=== PATIENT | female | born 2000 | race Hispanic/Latino ===

== ENCOUNTER 2021-04-26 16:17 | Inpatient (IN) | payer OTHER ==
[2021-04-26 16:39] VITALS: BMI 27.2
[2021-04-26] MEDS ORDERED: hydrALAZINE 20 MG/ML VIAL SLOW IVP PRN ×3 (16:57→21:00)
[2021-04-26] MEDS ORDERED: Lactated Ringer's 1,000 ML IV SCH ×2 (17:00→17:30)
[2021-04-26] MEDS ORDERED: Lidocaine 1% (PF) 30 ML VIAL SC PRN (17:23)
[2021-04-26] MEDS ORDERED: Ondansetron PF 4 MG/2 ML Vial IVP PRN ×2 (17:23→21:00)
[2021-04-26] MEDS ORDERED: Promethazine HCl 25 MG/ML VIAL IM PRN ×2 (17:23→21:00)
[2021-04-26] MEDS ORDERED: Diphenoxylate HCl/Atropine Tablet PO PRN (17:23)
[2021-04-26] MEDS ORDERED: Misoprostol 200 MCG TAB PR PRN (17:23)
[2021-04-26] MEDS ORDERED: Carboprost 250 MCG/ML AMP IM PRN (17:23)
[2021-04-26] MEDS ORDERED: Methylergonovine 0.2 MG/ML VIAL IM PRN ×2 (17:23→21:00)
[2021-04-26] MEDS ORDERED: Lidocaine 1% (PF) 30 ML VIAL ONE (17:39)
[2021-04-26] MEDS ORDERED: NS w/ Oxytocin 30 units 500 ML ONE (17:39)
[2021-04-26 17:47] LABS: Hemoglobin 10.1 g/dL (12.0-15.5); Mean Corpuscular HGB CONC 31.9 g/dL (32.0-36.0); Mean Corpuscular Hemoglobin 26.8 pg (27.0-33.0); Mean Corpuscular Volume 84.1 fl (81.6-98.3); Mean Platelet Volume 10.6 fl (7.4-10.4); Platelet Count 254 10x3/uL (150-450); RBC Distribution Width 14.6 % (11.5-14.5); Red Blood Cell (RBC) Count 3.77 10x6/uL (3.90-5.03); White Blood Cell (WBC) Count 9.9 10x3/uL (3.5-10.5)
[2021-04-26] MEDS: NS w/ Oxytocin 30 units 500 ML IV SCH ×2 (17:51→18:34)
[2021-04-26 18:03] LABS: FFN Internal QC Analyzer PASS (PASS); FFN Internal QC Cassette PASS (PASS)
[2021-04-26 18:05] LABS: Fetal Fibronectin POSITIVE (Negative)
[2021-04-26 18:20] LABS: Hep B Surf Ag Non-Reactive S/CO (NonReactive); Syphilis Antibody Nonreactive (Nonreactive); Syphilis Antibody Index 0.06 S/CO (<1.00 Non-Reactive)
[2021-04-26 19:33] LABS: SARS-CoV-2 NAA Rapid Test Not Detected (NotDetected)
[2021-04-26 19:44] LABS: Amphetamine Not Detected (NotDetected); Barbiturates Screen Not Detected (NotDetected); Benzodiazepine Screen Not Detected (NotDetected); Cocaine Metabolite Screen Not Detected (NotDetected); Methadone Not Detected (NotDetected); Methamphetamine Not Detected (NotDetected); Opiate Screen Not Detected (NotDetected); Oxycodone Screen Not Detected (NotDetected); Phencyclidine (PCP) Not Detected (NotDetected); THC/Cannabinoid Screen Not Detected (NotDetected); Tricyclic Screen Not Detected (NotDetected)
[2021-04-26] MEDS ORDERED: Boostrix 0.5 ML (Tdap) VIAL IM ONE (19:55)
[2021-04-26] MEDS ORDERED: Milk Of Magnesia 30 ML UDCUP PO PRN ×2 (19:55→21:00)
[2021-04-26] MEDS ORDERED: Bisacodyl 10 MG SUPP PR PRN ×2 (19:55→21:00)
[2021-04-26] MEDS ORDERED: Benzocaine-Menthol 82.5 ML CAN TOP PRN (19:55)
[2021-04-26] MEDS ORDERED: Preparation H Ointment 28 GM TUBE PR PRN (19:55)
[2021-04-26] MEDS ORDERED: Lanolin Ointment 7 GM TUBE TOP PRN (19:55)
[2021-04-26] MEDS ORDERED: HYDROcodone/Acetaminophen 5/325 mg Tablet PO PRN (19:55)
[2021-04-26 20:27] LABS: HIV (1/2) Antibody/Antigen Non-Reactive (NonReactive); HIV 1/2 INDEX 0.07 S/CO (<1.00)
[2021-04-26] MEDS ORDERED: NS w/ Oxytocin 30 units 500 ML IV SCH (21:00)
[2021-04-26] MEDS ORDERED: Docusate 100 MG CAP PO SCH (21:00)
[2021-04-26] MEDS ORDERED: diphenhydrAMINE 25 MG CAP PO PRN (21:00)
[2021-04-26] MEDS ORDERED: Ibuprofen 800 MG TAB PO SCH (22:00)
[2021-04-26] MEDS: Docusate 100 MG CAP PO SCH (22:21)
[2021-04-26] MEDS: Ibuprofen 800 MG TAB PO SCH (22:22)
[2021-04-27 04:41] LABS: Hemoglobin 8.7 g/dL (12.0-15.5)
[2021-04-27] MEDS: Ibuprofen 800 MG TAB PO SCH ×2 (06:20→14:16)
[2021-04-27] MEDS ORDERED: Ferrous Sulfate 325 MG TAB PO SCH (08:00)
[2021-04-27] MEDS: Ferrous Sulfate 325 MG TAB PO SCH ×2 (08:16→17:03)
[2021-04-27] MEDS: Prenatal Vitamin 1 TAB PO SCH (08:16)
[2021-04-27] MEDS: Docusate 100 MG CAP PO SCH ×2 (08:16→21:09)
[2021-04-27] MEDS ORDERED: Prenatal Vitamin 1 TAB PO SCH (09:00)
[2021-04-28] MEDS: Ibuprofen 800 MG TAB PO SCH ×3 (02:17→14:05)
[2021-04-28 07:40] VITALS: BP 108/60; TEMP 98.3
[2021-04-28] MEDS: Ferrous Sulfate 325 MG TAB PO SCH (08:54)
[2021-04-28] MEDS: Prenatal Vitamin 1 TAB PO SCH (08:54)
[2021-04-28] MEDS: Docusate 100 MG CAP PO SCH (08:54)
== END 2021-04-28 18:15 | disposition home or self-care (01) | DRG 807 ==
LOC: CSHLD/OP 16:17 → CSHLD 18:15 → CSHPP 21:43
PROVIDERS: ADMIT Obstetrics & Gynecology; ATTEND Obstetrics & Gynecology
PROC: 10E0XZZ Delivery of Products of Conception, External Approach (ICD-10-PCS; principal; 2021-04-26)
DX: O60.14X0 Preterm labor third trimester with preterm delivery third trimester, not applicable or unspecified (principal); Z37.0 Single live birth; Z3A.35 35 weeks gestation of pregnancy; O69.81X0 Labor and delivery complicated by cord around neck, without compression, not applicable or unspecified; O99.02 Anemia complicating childbirth; D50.9 Iron deficiency anemia, unspecified; Z20.822 Contact with and (suspected) exposure to COVID-19
CPT/HCPCS: 36415; 80306; 82731; 85014; 85018; 85027; 86762; 86780; 86850; 86900; 86901; 87081; 87340; 87389; 88307; 99285; J2001; J2210; J2590; U0002

== ENCOUNTER 2021-05-05 22:12 | Emergency (ER) | payer OTHER ==
[2021-05-05] MEDS ORDERED: Ondansetron PF 4 MG/2 ML Vial ONE (22:46)
[2021-05-05] MEDS ORDERED: Mag-Al Plus 1200 MG/1200 MG/120 MG/30 ML UDCUP ONE (22:46)
[2021-05-05] MEDS ORDERED: Lidocaine Viscous Sol 2% 15 ml UD Cup ONE (22:46)
[2021-05-05 22:58] LABS: #Eosinphils 0.2 10x3/uL (0.0-0.5); #Monocytes 0.5 10x3/uL (0.0-1.1); #Neutrophils 4.8 10x3/uL (1.5-8.4); %Basophils 0.2 % (0.0-2.0); %Eosinophils 2.1 % (0.0-6.0); %Lymphocytes 33.3 % (18.0-47.0); %Monocytes 5.6 % (0.0-10.0); %Neutrophils 58.3 % (40.0-75.0); Hemoglobin 10.7 g/dL (12.0-15.5); Mean Corpuscular HGB CONC 31.8 g/dL (32.0-36.0); Mean Corpuscular Hemoglobin 27.1 pg (27.0-33.0); Mean Corpuscular Volume 85.1 fl (81.6-98.3); Mean Platelet Volume 9.7 fl (7.4-10.4); Platelet Count 333 10x3/uL (150-450); RBC Distribution Width 16.5 % (11.5-14.5); Red Blood Cell (RBC) Count 3.95 10x6/uL (3.90-5.03); White Blood Cell (WBC) Count 8.2 10x3/uL (3.5-10.5)
[2021-05-05 23:14] LABS: ALT (SGPT) 33 U/L (8-55); AST (SGOT) 48 U/L (5-30); Albumin 4.2 g/dL (3.5-5.0); Alkaline Phosphatase 205 U/L (40-100); Anion Gap 14 mmol/L (10-20); BUN (Urea Nitrogen) 16 mg/dL (8.4-21.0); Bilirubin, Total 0.4 mg/dL (0.2-1.2); Calc. Creatinine Clearance 0 mL/min (70-130); Calcium 9.8 mg/dL (7.8-10.44); Carbon Dioxide 24 mmol/L (22-29); Chloride 103 mmol/L (98-107); Globulin 3.6 g/dL (2.4-3.5); Glucose 85 mg/dL (70-105); Lipase 26 U/L (8-78); Potassium 3.8 mmol/L (3.5-5.1); Protein, Total 7.8 g/dL (6.0-8.3); Sodium 137 mmol/L (136-145)
== END 2021-05-06 00:28 | disposition home or self-care (01) ==
LOC: CSHERS 22:12
DX: K80.20 Calculus of gallbladder without cholecystitis without obstruction (principal); N13.30 Unspecified hydronephrosis
CPT/HCPCS: 71045; 76705; 80053; 83690; 85025; 96374; J2405

== ENCOUNTER 2023-12-16 23:31 | Inpatient (IN) | payer OTHER ==
[2023-12-17] MEDS ORDERED: Ondansetron PF 4 MG/2 ML Vial IVP PRN (02:26)
[2023-12-17] MEDS ORDERED: hydrALAZINE 20 MG/ML VIAL SLOW IVP PRN (02:26)
[2023-12-17] MEDS ORDERED: Promethazine HCl 25 MG/ML VIAL IM PRN (02:26)
[2023-12-17] MEDS: Ibuprofen 800 MG TAB PO SCH (05:05)
[2023-12-17] MEDS ORDERED: HYDROcodone/Acetaminophen 5/325 mg Tablet PO PRN (07:40)
[2023-12-17] MEDS: Ferrous Sulfate 325 MG TAB PO SCH (08:14)
[2023-12-17] MEDS: HYDROcodone/Acetaminophen 10/325 mg Tablet PO PRN (08:35)
[2023-12-17] MEDS: Acetaminophen 325 MG TAB PO SCH (08:37)
[2023-12-17] MEDS: Simethicone Chewable 80 MG TAB PO PRN (14:48)
[2023-12-18 06:44] LABS: Hematocrit 28.5 % (34.9-44.5); Hemoglobin 9.7 g/dL (12.0-15.5); Mean Corpuscular Hemoglobin 30.7 pg (27.0-33.0); Mean Corpuscular Volume 90.2 fL (81.6-98.3); Mean Platelet Volume 10.1 fL (7.4-10.4); Platelet Count 169 10x3/uL (150-450); RBC Distribution Width 17.2 % (11.5-14.5); Red Blood Cell (RBC) Count 3.16 10x6/uL (3.90-5.03); White Blood Cell (WBC) Count 7.4 10x3/uL (3.5-10.5)
[2023-12-18 07:04] LABS: ALT (SGPT) 11 U/L (8-55); AST (SGOT) 15 U/L (5-34); Albumin 2.5 g/dL (3.5-5.0); Alkaline Phosphatase 58 U/L (40-110); Anion Gap 15 mmol/L (10-20); BUN (Urea Nitrogen) 6 mg/dL (7.0-18.7); Bilirubin, Total 0.2 mg/dL (0.2-1.2); Calc. Creatinine Clearance 0 mL/min (70-130); Calcium 8.2 mg/dL (7.8-10.44); Carbon Dioxide 22 mmol/L (22-29); Chloride 106 mmol/L (98-107); D-Dimer Test 10.29 mcg/mL (0.19-0.50); Estimated GFR 132; Glucose 101 mg/dL (70-105); INR-International Normal Ratio 0.9; PTT 25.7 sec (22.0-33.0); Potassium 3.6 mmol/L (3.5-5.1); Protein, Total 5.5 g/dL (6.0-8.3); Prothrombin Time 9.8 sec (9.5-12.1); Sodium 139 mmol/L (136-145)
[2023-12-18 07:59] VITALS: BP 101/65; TEMP 98.1
== END 2023-12-18 16:40 | disposition home or self-care (01) | DRG 776 ==
LOC: CSHPP 12-17 02:16
PROVIDERS: ADMIT Family Medicine; ATTEND Family Medicine
DX: O72.3 Postpartum coagulation defects (principal)
CPT/HCPCS: 36415; 80053; 85027; 85049; 85300; 85362; 85384; 85610; 85730

== ENCOUNTER 2024-01-16 19:16 | Inpatient (IN) | payer OTHER ==
[2024-01-16] MEDS ORDERED: Acetaminophen 325 MG TAB PO PRN (23:56)
[2024-01-16] MEDS ORDERED: Ondansetron ODT 4 MG TAB PO PRN (23:56)
[2024-01-17] MEDS ORDERED: Piperacillin/Tazobactam 4.5 GM in Sodium Chloride 0.9% 100 ML IVPB SCH (00:10)
[2024-01-17] MEDS: Ibuprofen 200 MG TAB PO SCH (00:43)
[2024-01-17] MEDS ORDERED: Piperacillin/Tazobactam 3.375 GM in Sodium Chloride 0.9% 100 ML IVPB SCH ×2 (01:00→05:00)
[2024-01-17] MEDS: Ampicillin/Sulbactam 3 GM in Sodium Chloride 0.9% 100 ML IVPB SCH (01:34)
[2024-01-17 02:36] VITALS: BMI 27.4
[2024-01-17 04:06] LABS: #Basophils 0.01 10x3/uL (0.0-0.2); #Eosinophils 0.18 10x3/uL (0.0-0.5); #Monocytes 0.57 10x3/uL (0.0-1.1); #Neutrophils 5.22 10x3/uL (1.5-8.4); %Basophils 0.1 % (0.0-2.0); %Eosinophils 2.4 % (0.0-6.0); %Lymphocytes 21.1 % (18.0-47.0); %Monocytes 7.5 % (0.0-10.0); %Neutrophils 68.6 % (40.0-75.0); Hematocrit 36.8 % (34.9-44.5); Hemoglobin 12.4 g/dL (12.0-15.5); Mean Corpuscular HGB CONC 33.7 g/dL (32.0-36.0); Mean Corpuscular Hemoglobin 30.8 pg (27.0-33.0); Mean Corpuscular Volume 91.5 fL (81.6-98.3); Mean Platelet Volume 10.3 fL (7.4-10.4); Platelet Count 145 10x3/uL (150-450); RBC Distribution Width 15.5 % (11.5-14.5); Red Blood Cell (RBC) Count 4.02 10x6/uL (3.90-5.03); White Blood Cell (WBC) Count 7.6 10x3/uL (3.5-10.5)
[2024-01-17 04:24] LABS: Anion Gap 14 mmol/L (10-20); BUN (Urea Nitrogen) 7 mg/dL (7.0-18.7); Calc. Creatinine Clearance 123 mL/min (70-130); Calcium 8.5 mg/dL (7.8-10.44); Carbon Dioxide 21 mmol/L (22-29); Chloride 107 mmol/L (98-107); Estimated GFR 125; Glucose 93 mg/dL (70-105); Potassium 3.6 mmol/L (3.5-5.1); Sodium 138 mmol/L (136-145)
[2024-01-17] MEDS: Acetaminophen 325 MG TAB PO SCH (07:20)
[2024-01-17] MEDS ORDERED: Enoxaparin 40 MG (0.4 mL) SYRINGE SC SCH (09:00)
[2024-01-17] MEDS: Enoxaparin 60 MG (0.6 mL) SYRINGE SC SCH (09:17)
[2024-01-17] MEDS: metroNIDAZOLE 500 MG TAB PO SCH (09:17)
[2024-01-17] MEDS ORDERED: Iopamidol 370 76% 100 ML VIAL ONE (10:51)
[2024-01-17] MEDS: Ibuprofen 200 MG TAB PO PRN (22:29)
[2024-01-18 01:33] LABS: Chlamydia by PCR, Vaginal Swab Not Detected (NotDetected); GC by PCR, Vaginal Swab Not Detected (NotDetected)
[2024-01-18 03:51] LABS: #Basophils 0.01 10x3/uL (0.0-0.2); #Eosinophils 0.31 10x3/uL (0.0-0.5); #Monocytes 0.57 10x3/uL (0.0-1.1); #Neutrophils 1.89 10x3/uL (1.5-8.4); %Basophils 0.2 % (0.0-2.0); %Eosinophils 5.4 % (0.0-6.0); Hematocrit 36.8 % (34.9-44.5); Hemoglobin 11.9 g/dL (12.0-15.5); Mean Corpuscular HGB CONC 32.3 g/dL (32.0-36.0); Mean Corpuscular Hemoglobin 29.5 pg (27.0-33.0); Mean Corpuscular Volume 91.3 fL (81.6-98.3); Mean Platelet Volume 10.2 fL (7.4-10.4); Platelet Count 155 10x3/uL (150-450); RBC Distribution Width 15.1 % (11.5-14.5); Red Blood Cell (RBC) Count 4.03 10x6/uL (3.90-5.03); White Blood Cell (WBC) Count 5.7 10x3/uL (3.5-10.5)
[2024-01-18 03:58] LABS: Anion Gap 12 mmol/L (10-20); BUN (Urea Nitrogen) 9 mg/dL (7.0-18.7); Calc. Creatinine Clearance 134 mL/min (70-130); Calcium 8.8 mg/dL (7.8-10.44); Carbon Dioxide 24 mmol/L (22-29); Chloride 109 mmol/L (98-107); Estimated GFR 128; Glucose 115 mg/dL (70-105); Potassium 3.5 mmol/L (3.5-5.1); Sodium 141 mmol/L (136-145)
[2024-01-18] MEDS: Ampicillin/Sulbactam 3 GM in Sodium Chloride 0.9% 100 ML IVPB SCH (03:59)
[2024-01-18 04:12] VITALS: TEMP 97.8
[2024-01-18 07:48] VITALS: BP 105/67
== END 2024-01-18 15:35 | disposition home or self-care (01) | DRG 776 ==
LOC: CSHPED 21:29
PROVIDERS: ADMIT Emergency Medicine; ATTEND Emergency Medicine
DX: O86.01 Infection of obstetric surgical wound, superficial incisional site (principal); O86.04 Sepsis following an obstetrical procedure; O86.81 Puerperal septic thrombophlebitis; O86.13 Vaginitis following delivery; O99.43 Diseases of the circulatory system complicating the puerperium; I80.8 Phlebitis and thrombophlebitis of other sites; Z79.899 Other long term (current) drug therapy; Z98.891 History of uterine scar from previous surgery
CPT/HCPCS: 36415; 74177; 80048; 85025; 87070; 87205; 87480; 87491; 87510; 87591; 87660; J0295; J1650; Q9967

== ENCOUNTER 2024-12-09 10:44 | Emergency (ER) | payer SELFPAY | END 2024-12-09 13:54 | disposition home or self-care (01) | LOC: CSHERS 10:44 | DX: M54.31 Sciatica, right side (principal) ==